=== PATIENT | female | born 1970 | race Caucasian/White ===

== ENCOUNTER → 2020-03-18 | Outpatient (CLI) | payer BC ==
--- NOTE | 2020-03-18 13:21 | Diagnostic Imaging Report ---
PROCEDURE: MRI right joint lower extremity without contrast. TECHNIQUE: Multiplanar, multisequence non contrast-enhanced MRI of the right lower extremity was accomplished. INDICATION: Right knee pain since December 2019. COMPARISON: None. FINDINGS: No acute fracture is seen in the right knee. Alignment is normal. There is subchondral edema at the lateral trochlea which is degenerative. No significant joint effusion is seen. The articular cartilage in the patellofemoral compartment demonstrates full-thickness cartilage loss at the median ridge and lateral facet with surface irregularity and heterogeneity. A small focal area of full-thickness cartilage loss is seen at the lateral trochlea. The articular cartilage in the medial and lateral compartments demonstrate mild surface irregularity with no large full-thickness defects. There is increased signal in the medial and lateral menisci, particularly posteriorly, which does not definitively extend into the articular surface, consistent with intrasubstance degeneration. The anterior and posterior cruciate ligaments are intact. The medial collateral ligament is intact. The lateral collateral ligamentous complex is intact. The extensor mechanism is intact. The medial and lateral retinacula are intact. Soft tissues about the right knee demonstrate no acute abnormality. There is a cystic structure posteriorly measuring 1.4 x 0.6 cm in size on axial imaging, and 1 cm craniocaudal, which may represent a ganglion cyst. There is also a 0.9 x 0.4 cm cystic structure anterior to the medial knee which may represent a small ganglion cyst as well. IMPRESSION: 1. 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 Small cysts at the anterior and posterior knee may represent ganglion cyst. 2. Moderate cartilage loss in the right knee, at the patellofemoral compartment. Dictated by: Dictated on workstation # [id number]
== END ==
LOC: RAD 11:00
PROVIDERS: ATTEND Orthopaedic Surgery
DX: M23.261 Derangement of other lateral meniscus due to old tear or injury, right knee (principal)
CPT/HCPCS: 73721